=== PATIENT | male | born 1955 | race Caucasian/White ===

== ENCOUNTER 2023-09-08 07:40 | Day surgery (SDC) | payer OTHER ==
[2023-08-24 14:08] LABS: Absolute Basophils 0.1 K/uL (0-0.5); Absolute Eosinophils 0.5 K/uL (0-0.5); Absolute Lymphocytes (CBC) 0.8 K/uL (0.7-4.9); Absolute Monocytes 0.6 K/uL (0.1-1.3); Eosinophils % 7.6 % (0-4.4); Hematocrit 35.8 % (39.6-49.0); Hemoglobin 11.6 g/dL (13.6-17.9); Lymphocytes % 11.5 % (15.3-44.8); MCH 28.5 pg (27.0-35.0); MCHC 32.4 g/dL (32.0-36.0); MPV 8.7 fL (7.6-11.3); Monocytes % 8.8 % (3.3-12.3); Neutrophils % 71.1 % (41.7-73.7); Platelets 162 thou/uL (152-406); RBC Red Blood Cell Count 4.07 M/uL (4.33-5.43)
[2023-08-24 14:16] LABS: PT Prothrombin Time 14.1 SECONDS (9.5-12.5); Protime INR 1.29
[2023-09-08] MEDS: Ringers Lactate 1,000 ML IV ONE (08:00)
[2023-09-08] MEDS ORDERED: propofoL 200 MG/20 ML VIAL IV ONE (09:08)
[2023-09-08] MEDS ORDERED: FENTANYL CITR 100 MCG/2 ML ONE (09:08)
[2023-09-08] MEDS ORDERED: ONDANSETRON 4 MG/2 ML VIAL ONE (09:08)
[2023-09-08] MEDS ORDERED: LIDOCAINE 1% MPF 5 ML VIAL ONE (09:09)
[2023-09-08] MEDS: CEFAZOLIN SODIUM 2 GM/VIAL ONE (09:17)
[2023-09-08] MEDS ORDERED: ROCURONIUM 50 MG/5 ML VIAL IV ONE (09:26)
[2023-09-08] MEDS ORDERED: dexAMETHasone 10 MG/ML VIAL ONE (09:31)
[2023-09-08] MEDS ORDERED: EPHEDRINE SULF 50 MG/ML VIAL ONE (09:42)
[2023-09-08] MEDS ORDERED: NEOSTIGMINE 1 MG/ML -10 ML VIAL ONE (10:09)
[2023-09-08] MEDS ORDERED: GLYCOPYRROLATE 0.2 MG/ML SYR ONE (10:09)
[2023-09-08] MEDS ORDERED: CODEINE 30MG/APAP 300MG TAB PO PRN (10:30)
[2023-09-08] MEDS ORDERED: PHENAZOPYRIDINE 100MG TAB PO ONE (11:12)
[2023-09-08] MEDS: PHENAZOPYRIDINE 100MG TAB PO ONE (11:13)
--- NOTE | 2023-09-08 12:28 | RAD REPORT ---
EXAM DESCRIPTION: RAD - Urethrocystogrphy Retrograde - 09/08/2023 12:08 pm CLINICAL HISTORY: ICD N 20.0 FINDINGS: Two fluoroscopic spot images obtained. Fluoroscopy time 0.2 minutes The right ureter was cannulated and contrast administered. Subsequently an ureteral stent was placed. Examination was performed by Dr Jung
[2023-09-08] MEDS ORDERED: NA CHLORIDE 0.9% 1,000 ML ONE (12:33)
--- NOTE | 2023-09-08 13:51 | OP ---
Surgeon: LORI BISHOP Preoperative Diagnoses: 1.Right ureterolithiasis. 2.Right nephrolithiasis. 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 Postoperative Diagnoses: 1.Right ureterolithiasis. 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 3.Right hydronephrosis. 4.Incomplete emptying of bladder. Principal Procedures: 1.Cystoscopy with sequential dilation of urethral stricture over a wire. 2.Right ureteroscopy with stone basketing. 3.Right ureteral stent exchange. 4.Right retrograde pyelography. Indication For Procedure: Mr. Elizalde presented with obstruction from a distal ureteral calculus asso ciated with some acute kidney injury and intractable nausea and vomiting. He underwent stent placeme nt and was incidentally found to have a bulbo-membranous urethral stricture associated with a bladder neck contracture given his history of prior radical prostatectomy, and that stricture was dilated wi th a catheter left in place for several days. He presents today for definitive management of his sto chayito. Procedure In Detail: The patient was consented in the preoperative holding area before being transfe rred to the operative suite where general anesthesia was induced. He was given Ancef 2 g IV antimicr obial prophylaxis, and pneumo boots were provided for DVT prophylaxis. He was placed in the lithotom y position, padded and secured to the table appropriately. His genitalia were prepped with Hibiclens and he was draped in standard fashion. The case was begun using a 22-Kenyan rigid cystoscope to tra verse the urethra until an area of narrowing was observed in the bulbo-membranous urethra just distal to the level of the striated sphincter. Attempts to pass the 22-Kenyan scope beyond this were thwar bhavin due to the narrowing; so I passed Darrellson guidewire under direct vision via the opening in the st ricture disease, which was approximately 16-Kenyan in diameter, and coiled it putatively within his b ladder. I removed the cystoscope leaving the wire in place, and then sequentially dilated over the w pawan the stricture disease from 18-Kenyan to 24-Kenyan with relative ease. I was then able to pass th e 22-Kenyan cystoscope via the urethra and into the bladder. I decompressed his bladder of fluid and urine, and I surveyed it briefly. No papillary mucosal lesions or stones were noted. The stent was noted to emanate from the right ureteral orifice. I grasped the tip of the coil of the stent using an alligator grasper and delivered it to the meatus leaving the proximal coil still within the mid ur eter as evidenced fluoroscopically. I then passed a Sensor wire via the stent ultimately up the uret er and coiling it within the putative collecting system. Leaving the Sensor wire in place after honorio ving the stent, I then performed direct vision semi-rigid ureteroscopy via the urethra and into the b ladder, up the right ureter until I encountered the approximately 5 mm stone initially the source of obstruction on CT. While there was some edema of the distal ureter from where the stone had impacted , no significant strictured disease was noted. So I utilized a 1.9-Kenyan 0 tip Nitinol basket to gr asp the stone and deliver it out of the ureter and out of his body with ease. I then reinserted the semi-rigid ureteroscope back into the distal ureter and navigated it into the mid and mid proximal ur eter where I was going to perform a retrograde pyelogram and place a Bentson guidewire before perform ing flexible ureteroscopy to manage the additional 4 to 5 mm calculus seen on CT scan in the kidney. However, I encountered that stone in the mid proximal ureter, at this point; so I used the 1.9-Frenc h basket to grasp the stone as well and deliver it from the meatus with ease. Both stones were sent for chemical analysis. I then passed a 5-Kenyan ureteral access catheter over the indwelling safety wire into the mid proxim al ureter and under fluoroscopic guidance performed a retrograde pyelography study. Right retrograde pyelography: Using a 70:30 mixture of Omnipaque and saline, I injected contrast via the lumen of the 5-Kenyan ureteral access catheter and it did emanate up the mid and mid proximal ur eter before entering the renal pelvis and calices where there was significant residual pelvocaliectas is despite the prior presence of the ureteral stent. As a result, I determined that there was likely a degree of persistent obstruction despite the prior stent having been in place and/or the patient w as inadequately emptying his bladder resulting in hydronephrosis due to reflux of the stent. So I re placed the safety wire via the 5-Kenyan ureteral access catheter coiling it within the upper pole of the kidney and removed the 5-Kenyan ureteral access catheter before backloading the cystoscope over t he safety wire and passing a new 6-Kenyan x 26 cm double-J right ureteral stent. A coil was observed fluoroscopically in the upper pole and one cystoscopically within his bladder was formed. I then de compressed his bladder of fluid and urine and removed the cystoscope. He was then taken out of the l ithotomy position, awakened from general anesthesia, transferred to a stretcher, and then transferred to the recovery room in good condition. Complications: None. Discharge Disposition: He will be given a voiding trial in recovery today, but if he retains more th an 150 cc of urine, I am recommending an 18-Kenyan Butcher catheter be placed by nursing. In that case , we will arrange repeat voiding trial on Thursday in the [facility]. I am discharging him with an additional 3 days of Keflex to cover him in the event a voiding trial on Thursday is required. Regardless, given his suspected incomplete bladder emptying contributing to the right hydronephrosis is persistent despite the stent, subsequent evaluation of his bladder would be recommended via urodyn amics if we demonstrate persistent moderate to significant volume incomplete emptying. Otherwise, we will establish followup for cystoscopy and right ureteral stent extraction in the office in about 2 to 3 weeks from now. Subsequent followup of his bulbar urethral stricture disease within the recomme nded approximately 3 months from stent extraction. Additionally, if he is a recurrent stone former, metabolic stone profile assessment will be required about a month after the stent has been removed. He would also benefit from repeat serum BMP at that time to ensure his renal function has resolved back to its baseline. MARICRUZ/YOMI Voice ID: [id number] Report ID: [id number]
[2023-09-08 14:44] VITALS: BP 130/60; TEMP 97; O2SAT 99
== END 2023-09-08 13:18 | disposition home or self-care (01) ==
LOC: OR 07:40
PROVIDERS: ATTEND Urology
PROC: 0T768DZ Dilation of Right Ureter with Intraluminal Device, Via Natural or Artificial Opening Endoscopic (ICD-10-PCS; 2023-09-08)
PROC: 0T7D8ZZ Dilation of Urethra, Via Natural or Artificial Opening Endoscopic (ICD-10-PCS; 2023-09-08)
PROC: 0TC68ZZ Extirpation of Matter from Right Ureter, Via Natural or Artificial Opening Endoscopic (ICD-10-PCS; principal; 2023-09-08 09:15)
DX: N20.2 Calculus of kidney with calculus of ureter (principal); N13.30 Unspecified hydronephrosis; R33.9 Retention of urine, unspecified; N32.0 Bladder-neck obstruction; N35.913 Unspecified membranous urethral stricture, male; I10 Essential (primary) hypertension; E78.5 Hyperlipidemia, unspecified; J45.909 Unspecified asthma, uncomplicated
CPT/HCPCS: 87088; 85025; 87086; 80048; 36415; 85610; 87077; 87186; 74450; 51610; 52281; 52352; 52332; J2704; J2710; J2001; J3010; J1100; J2405; J7120; J7030